=== PATIENT | female | born 1990 | race Caucasian/White ===

== ENCOUNTER 2020-05-29 12:47 | Inpatient (IN) | payer BC, OTHER ==
[~2020-05-29] VITALS: Ht 160 cm; Wt 104.9 kg
--- NOTE | 2020-05-29 13:54 | NUR ---
AGRICULTURAL EXTENSION EDUCATOR: URINE COLLECTED AND SENT TO LAB.
[2020-05-29 14:03] LABS: BASOPHILS % (AUTO) 1 % (0-1); EOSINOPHILS % (AUTO) 0 % (1-7); LYMPHOCYTES % (AUTO) 15 % (22-44); MEAN CORPUSCULAR HGB CONC 34.3 g/dL (32.4-35.8); MEAN PLATELET VOLUME 7.4 fL (7.4-10.4); MONOCYTES % (AUTO) 7 % (2-9); NEUTROPHILS % (AUTO) 77 % (42-75); PLATELET COUNT 342 x10^3/uL (130-400); RED BLOOD COUNT 4.07 x10^6/uL (3.82-5.3); RED CELL DISTRIBUTION WIDTH 13.7 % (9.6-15.2)
[2020-05-29 14:04] LABS: MICROSCOPIC INDICATED
[2020-05-29 14:09] LABS: MD NO
[2020-05-29 14:11] LABS: ANION GAP 19 mmol/L (5-15); CALCIUM 8.8 mg/dL (8.5-10.1); CHLORIDE 88 mmol/L (98-107)
[2020-05-29 14:20] LABS: ALANINE AMINOTRANSFERASE 154 U/L (12-78); ALKALINE PHOSPHATASE 180 U/L (45-117); BILIRUBIN,TOTAL 3.5 mg/dL (0.2-1.0); CREATININE 1.06 mg/dL (0.55-1.02); TOTAL PROTEIN 7.5 g/dL (6.4-8.2)
--- NOTE | 2020-05-29 15:40 | NUR ---
THIS IS A 29 YO F W/ C/O RUQ/LUQ, R FLANK AND L FLANK PAIN W/ N/V. PT REPORTS DRINKING 1/5 ALCOHOL DAY, LAST DRINK WAS TODAY. PT RESTING ON GURNEY W/ CALL LIGHT IN REACH, RESP EVEN AND UNLABORED. PT TACHYCARDIC, OTHER VS WDL. AWAITING ED EVAL.
[2020-05-29] MEDS ORDERED: POTASSIUM CHLORIDE 40 MEQ in SODIUM CHLORIDE 0.9% 500 ML IV ONE (16:00)
[2020-05-29] MEDS ORDERED: FAMOTIDINE 20 MG/2 ML IV ONE (16:00)
[2020-05-29] MEDS ORDERED: ONDANSETRON 2MG/ML, 2ML IVPush ONE (16:00)
[2020-05-29] MEDS ORDERED: SODIUM CHLORIDE 0.9% 1,000ML IVBOLUS ONE (16:00)
--- NOTE | 2020-05-29 16:23 | NUR ---
NEED IV FOR CT EXAM
[2020-05-29] MEDS ORDERED: ONDANSETRON 2MG/ML, 2ML ONE (16:33)
[2020-05-29] MEDS ORDERED: MORPHINE SULFATE 4 MG/ML, 1ML ONE ×2 (16:34→17:35)
[2020-05-29] MEDS ORDERED: FAMOTIDINE 20 MG/2 ML ONE (16:34)
[2020-05-29] MEDS: MORPHINE SULFATE 4 MG/ML, 1ML IVPush PRN ×2 (16:36→17:40)
--- NOTE | 2020-05-29 16:43 | NUR ---
TASK RN: PIV STARTED AND PT MEDICATED PER EMAR. PT TAKEN TO CT AT THIS TIME.
--- NOTE | 2020-05-29 16:47 | NUR ---
TASK RN: HERBERTH VERONICA FROM PHARMACY.
[2020-05-29] MEDS ORDERED: OMNIPAQUE 350 MG/ML, 100ML BOTTLE ONE (16:59)
--- NOTE | 2020-05-29 17:03 | NUR ---
PT RETURNS FROM CT. STATES SHE'S FEELING A LITTLE BETTER AFTER MORPHINE & ZOFRAN. IV BOLUS INFUSING. MIVF + KCL REQUESTED FROM PHARMACY.
[2020-05-29] MEDS ORDERED: BUSPIRONE PO (17:05)
[2020-05-29] MEDS ORDERED: VENLAFAXINE PO (17:05)
--- NOTE | 2020-05-29 17:48 | NUR ---
RV'WD POC WITH PT. PT STILL C/O LOW BACK PAIN 12/25. MEDICATED WITH ANOTHER DOSE OF MORPHINE. HR 120s-130s, WILL REASSESS AFTER PAIN MEDICATION.
[2020-05-29 18:20] LABS: ACETONE, SERUM Negative (Negative)
[2020-05-29] MEDS ORDERED: SODIUM CHLORIDE 0.9% 1,000 ML IV ONE (18:30)
[2020-05-29] MEDS ORDERED: DOCUSATE 100 MG CAPSULE PO PRN (19:00)
[2020-05-29] MEDS ORDERED: CEFTRIAXONE PMX 1GM/50ML 50 ML IV ONE (19:00)
[2020-05-29] MEDS ORDERED: LABETALOL 5MG/ML, 20ML IVPush PRN (19:00)
[2020-05-29] MEDS: SODIUM CHLORIDE 0.9% 1,000 ML IV SCH (19:00)
[2020-05-29] MEDS ORDERED: CEFTRIAXONE PMX 1GM/50ML 50 ML ONE (19:46)
[2020-05-29 20:42] VITALS: BP 110/74
[2020-05-29] MEDS: VENLAFAXINE 25MG TABLET PO SCH (21:00)
[2020-05-29] MEDS ORDERED: VENLAFAXINE 50MG TABLET ONE (21:58)
[2020-05-29] MEDS: HEPARIN 5,000 UNITS/ML, 1ML SQ SCH (22:05)
[2020-05-29] MEDS: BUSPIRONE 5 MG TABLET PO SCH (22:05)
[2020-05-29] MEDS: NICOTINE 7 MG/24 HR PATCH.TD24 TD SCH (22:05)
[2020-05-29] MEDS: ONDANSETRON 2MG/ML, 2ML IVPush PRN (22:05)
[2020-05-29] MEDS: INSULIN LISPRO 100 UNITS/ML, PEN SQ-INSULIN SCH (22:35)
[2020-05-29] MEDS: POTASSIUM CHLORIDE 20 MEQ, MAGNESIUM SULFATE 1 GM, THIAMINE 200 MG, FOLIC ACID 1 MG, MV... IV SCH (22:35)
[2020-05-30 01:20] VITALS: BP_SYST 104; BP_SYST 124; BP_DIAS 65; BP_DIAS 68
[2020-05-30] MEDS: SODIUM CHLORIDE 0.9% 1,000 ML IV SCH ×3 (04:14→20:06)
[2020-05-30] MEDS ORDERED: DIPHENHYDRAMINE 25 MG CAPSULE ONE (04:21)
[2020-05-30] MEDS: DIPHENHYDRAMINE 25 MG CAPSULE PO PRN (04:22)
[2020-05-30 04:55] LABS: BASOPHILS % (AUTO) 0 % (0-1); EOSINOPHILS % (AUTO) 1 % (1-7); LYMPHOCYTES % (AUTO) 18 % (22-44); MEAN CORPUSCULAR HGB CONC 33.9 g/dL (32.4-35.8); MEAN PLATELET VOLUME 7.3 fL (7.4-10.4); MONOCYTES % (AUTO) 5 % (2-9); NEUTROPHILS % (AUTO) 76 % (42-75); PLATELET COUNT 308 x10^3/uL (130-400); RED BLOOD COUNT 3.51 x10^6/uL (3.82-5.3); RED CELL DISTRIBUTION WIDTH 13.7 % (9.6-15.2)
[2020-05-30 05:05] LABS: ALBUMIN 2.6 g/dL (3.4-5.0); ANION GAP 11 mmol/L (5-15); CALCIUM 7.9 mg/dL (8.5-10.1); CHLORIDE 102 mmol/L (98-107)
[2020-05-30 05:10] LABS: ALANINE AMINOTRANSFERASE 115 U/L (12-78); ALKALINE PHOSPHATASE 139 U/L (45-117); BILIRUBIN,TOTAL 3.4 mg/dL (0.2-1.0); CREATININE 0.91 mg/dL (0.55-1.02); TOTAL PROTEIN 6.3 g/dL (6.4-8.2)
[2020-05-30 05:11] LABS: MD NO
[2020-05-30] MEDS: HEPARIN 5,000 UNITS/ML, 1ML SQ SCH ×3 (05:11→21:57)
[2020-05-30 05:24] LABS: CHLORIDE,URINE RANDOM 25 mmol/L; POTASSIUM,URINE RANDOM 24 mmol/L
[2020-05-30 05:30] LABS: SODIUM,URINE RANDOM < 5 mmol/L
[2020-05-30 06:32] LABS: OSMOLALITY,URINE 616 mOsm/kg (500-850)
[2020-05-30 06:55] VITALS: BP 109/74
[2020-05-30] MEDS: ONDANSETRON 2MG/ML, 2ML IVPush PRN (08:16)
[2020-05-30] MEDS ORDERED: POTASSIUM CHLORIDE 20 MEQ TAB.ER.PRT PO ONE ×2 (08:30→19:30)
[2020-05-30] MEDS: PANTOPRAZOLE 40 MG IV IVPush SCH (08:59)
[2020-05-30] MEDS: INSULIN LISPRO 100 UNITS/ML, PEN SQ-INSULIN SCH ×4 (09:00→20:26)
[2020-05-30] MEDS: BUSPIRONE 5 MG TABLET PO SCH ×3 (09:00→21:56)
[2020-05-30] MEDS: VENLAFAXINE 25MG TABLET PO SCH ×3 (09:00→21:56)
[2020-05-30] MEDS ORDERED: MAGNESIUM SULFATE PMX 2GM/50ML 50 ML IV ONE (09:30)
[2020-05-30] MEDS ORDERED: LORazepam 1MG TABLET PO PRN ×4 (09:30)
[2020-05-30] MEDS ORDERED: LORazepam 2 MG/ML, 1ML IV PRN ×4 (09:30)
[2020-05-30] MEDS ORDERED: morphine SULFATE 10 MG/ML, 1ML IVPush PRN (09:30)
[2020-05-30] MEDS: KETOROLAC 30 MG/1 ML IVPush SCH ×3 (10:26→21:57)
[2020-05-30 11:11] LABS: FREE T4 (FREE THYROXINE) 1.04 ng/dL (0.76-1.46)
[2020-05-30 12:11] VITALS: BP 94/62
[2020-05-30 16:23] LABS: AMPHETAMINE SCREEN, URINE Negative (Negative); BARBITURATE SCREEN, URINE Negative (Negative); BENZODIAZEPINE SCREEN, URINE Negative (Negative); CANNABINOID SCREEN, URINE Negative (Negative); COCAINE SCREEN, URINE Negative (Negative); METHADONE SCREEN, URINE Negative (Negative); OPIATE SCREEN, URINE Positive (Negative)
[2020-05-30 19:30] VITALS: BP 97/65
[2020-05-30] MEDS: CEFTRIAXONE PMX 1GM/50ML 50 ML IV SCH (20:01)
[2020-05-30] MEDS: POTASSIUM CHLORIDE 20 MEQ, MAGNESIUM SULFATE 1 GM, THIAMINE 200 MG, FOLIC ACID 1 MG, MV... IV SCH (21:56)
[2020-05-30] MEDS: CHLORDIAZEPOXIDE 25 MG CAPSULE PO SCH (21:56)
[2020-05-30] MEDS: NICOTINE 7 MG/24 HR PATCH.TD24 TD SCH (21:58)
[2020-05-31 02:38] VITALS: BP 104/60
[2020-05-31] MEDS: KETOROLAC 30 MG/1 ML IVPush SCH ×4 (03:48→21:52)
[2020-05-31 04:56] LABS: BASOPHILS % (AUTO) 1 % (0-1); EOSINOPHILS % (AUTO) 4 % (1-7); LYMPHOCYTES % (AUTO) 31 % (22-44); MEAN CORPUSCULAR HGB CONC 33.3 g/dL (32.4-35.8); MEAN PLATELET VOLUME 7.3 fL (7.4-10.4); MONOCYTES % (AUTO) 7 % (2-9); NEUTROPHILS % (AUTO) 57 % (42-75); PLATELET COUNT 269 x10^3/uL (130-400); RED BLOOD COUNT 3.22 x10^6/uL (3.82-5.3); RED CELL DISTRIBUTION WIDTH 13.7 % (9.6-15.2)
[2020-05-31 05:01] LABS: ALANINE AMINOTRANSFERASE 100 U/L (12-78); ANION GAP 8 mmol/L (5-15); CALCIUM 7.3 mg/dL (8.5-10.1); CHLORIDE 110 mmol/L (98-107); CREATININE 0.63 mg/dL (0.55-1.02)
[2020-05-31 05:03] LABS: ALKALINE PHOSPHATASE 114 U/L (45-117); BILIRUBIN,TOTAL 3.2 mg/dL (0.2-1.0); TOTAL PROTEIN 5.1 g/dL (6.4-8.2)
[2020-05-31 05:04] LABS: MD NO
[2020-05-31] MEDS: HEPARIN 5,000 UNITS/ML, 1ML SQ SCH ×3 (05:18→23:16)
[2020-05-31] MEDS: CHLORDIAZEPOXIDE 25 MG CAPSULE PO SCH ×4 (05:18→20:15)
[2020-05-31] MEDS: SODIUM CHLORIDE 0.9% 1,000 ML IV SCH (05:18)
[2020-05-31] MEDS: INSULIN LISPRO 100 UNITS/ML, PEN SQ-INSULIN SCH ×4 (07:00→20:13)
[2020-05-31 07:22] VITALS: BP 136/88
[2020-05-31] MEDS: PANTOPRAZOLE 40 MG IV IVPush SCH (08:13)
[2020-05-31] MEDS: BUSPIRONE 5 MG TABLET PO SCH ×3 (08:14→20:15)
[2020-05-31] MEDS: VENLAFAXINE 25MG TABLET PO SCH ×3 (08:14→20:15)
[2020-05-31] MEDS: LACTOBACILLUS CHEW TABLET PO SCH ×3 (11:00→20:15)
[2020-05-31] MEDS ORDERED: POTASSIUM CHLORIDE 20 MEQ, MAGNESIUM SULFATE 1 GM, THIAMINE 200 MG, FOLIC ACID 1 MG, MV... IV SCH (11:30)
[2020-05-31] MEDS ORDERED: POTASSIUM PHOSPHATE 44 MEQ in SODIUM CHLORIDE 0.9% 500 ML IV ONE (11:30)
[2020-05-31 12:24] VITALS: BP 114/78
[2020-05-31] MEDS: LORazepam 2 MG/ML, 1ML IV PRN (15:17)
[2020-05-31 19:16] VITALS: BP 106/75
[2020-05-31] MEDS: CEFTRIAXONE PMX 1GM/50ML 50 ML IV SCH (20:22)
[2020-05-31] MEDS: NICOTINE 7 MG/24 HR PATCH.TD24 TD SCH (20:22)
[2020-05-31] MEDS: POTASSIUM CHLORIDE 20 MEQ, MAGNESIUM SULFATE 1 GM, THIAMINE 200 MG, FOLIC ACID 1 MG, MV... IV SCH (21:52)
[2020-05-31 22:03] LABS: CLOSTRIDIUM DIFFICILE ANTIGEN NEGATIVE; CLOSTRIDIUM DIFFICILE TOXIN NEGATIVE (Negative)
[2020-06-01 02:22] VITALS: BP 110/75
[2020-06-01] MEDS: LORazepam 2 MG/ML, 1ML IV PRN (02:45)
[2020-06-01 04:49] LABS: ALANINE AMINOTRANSFERASE 98 U/L (12-78); ANION GAP 11 mmol/L (5-15); CALCIUM 7.3 mg/dL (8.5-10.1); CHLORIDE 110 mmol/L (98-107)
[2020-06-01 04:51] LABS: ALKALINE PHOSPHATASE 121 U/L (45-117); BILIRUBIN,TOTAL 3.7 mg/dL (0.2-1.0); TOTAL PROTEIN 5.2 g/dL (6.4-8.2)
[2020-06-01] MEDS: CHLORDIAZEPOXIDE 25 MG CAPSULE PO SCH ×3 (06:21→16:35)
[2020-06-01] MEDS: LACTOBACILLUS CHEW TABLET PO SCH ×4 (06:21→20:37)
[2020-06-01] MEDS: KETOROLAC 30 MG/1 ML IVPush SCH ×4 (06:21→23:46)
[2020-06-01] MEDS: HEPARIN 5,000 UNITS/ML, 1ML SQ SCH ×3 (06:22→23:47)
[2020-06-01] MEDS: INSULIN LISPRO 100 UNITS/ML, PEN SQ-INSULIN SCH ×4 (07:00→21:00)
[2020-06-01 07:35] VITALS: BP 106/72
[2020-06-01] MEDS: BUSPIRONE 5 MG TABLET PO SCH ×3 (09:20→20:37)
[2020-06-01] MEDS: VENLAFAXINE 25MG TABLET PO SCH ×3 (09:20→20:37)
[2020-06-01] MEDS: PANTOPRAZOLE 40 MG IV IVPush SCH (09:21)
[2020-06-01] MEDS: NICOTINE 7 MG/24 HR PATCH.TD24 TD SCH (09:22)
[2020-06-01 11:52] VITALS: BP 104/73
[2020-06-01 14:32] VITALS: BP 104/73
[2020-06-01] MEDS: LORazepam 0.5MG TABLET PO PRN ×2 (14:48→21:36)
[2020-06-01 19:22] VITALS: BP 101/71
[2020-06-01] MEDS: CEFTRIAXONE PMX 1GM/50ML 50 ML IV SCH (20:36)
[2020-06-01] MEDS: POTASSIUM CHLORIDE 20 MEQ, MAGNESIUM SULFATE 1 GM, THIAMINE 200 MG, FOLIC ACID 1 MG, MV... IV SCH (21:36)
[2020-06-02 01:39] VITALS: BP 98/67
[2020-06-02 05:16] LABS: BASOPHILS % (AUTO) 1 % (0-1); EOSINOPHILS % (AUTO) 2 % (1-7); LYMPHOCYTES % (AUTO) 26 % (22-44); MEAN CORPUSCULAR HEMOGLOBIN 34.6 pg (27.0-34.8); MEAN CORPUSCULAR HGB CONC 33.4 g/dL (32.4-35.8); MEAN PLATELET VOLUME 6.9 fL (7.4-10.4); MONOCYTES % (AUTO) 7 % (2-9); NEUTROPHILS % (AUTO) 64 % (42-75); PLATELET COUNT 338 x10^3/uL (130-400); RED BLOOD COUNT 3.22 x10^6/uL (3.82-5.3); RED CELL DISTRIBUTION WIDTH 14.3 % (9.6-15.2)
[2020-06-02 05:28] LABS: MD NO
[2020-06-02 05:34] LABS: ALANINE AMINOTRANSFERASE 93 U/L (12-78); ALBUMIN 2.1 g/dL (3.4-5.0); ANION GAP 10 mmol/L (5-15); CALCIUM 7.6 mg/dL (8.5-10.1); CHLORIDE 110 mmol/L (98-107); CREATININE 0.52 mg/dL (0.55-1.02)
[2020-06-02 05:37] LABS: ALKALINE PHOSPHATASE 134 U/L (45-117); BILIRUBIN,TOTAL 3.7 mg/dL (0.2-1.0); TOTAL PROTEIN 5.4 g/dL (6.4-8.2)
[2020-06-02] MEDS ORDERED: PANTOPRAZOLE 40MG TABLET PO SCH (06:00)
[2020-06-02] MEDS: LACTOBACILLUS CHEW TABLET PO SCH ×4 (06:16→20:32)
[2020-06-02] MEDS: PANTOPRAZOLE 40MG TABLET PO SCH (06:16)
[2020-06-02] MEDS: KETOROLAC 30 MG/1 ML IVPush SCH ×4 (06:16→23:30)
[2020-06-02 06:45] VITALS: BP 102/65
[2020-06-02] MEDS: INSULIN LISPRO 100 UNITS/ML, PEN SQ-INSULIN SCH ×4 (07:00→20:58)
[2020-06-02] MEDS: NICOTINE 7 MG/24 HR PATCH.TD24 TD SCH (07:58)
[2020-06-02] MEDS: BUSPIRONE 5 MG TABLET PO SCH ×3 (07:59→20:32)
[2020-06-02] MEDS: VENLAFAXINE 25MG TABLET PO SCH ×3 (07:59→20:32)
[2020-06-02] MEDS: HEPARIN 5,000 UNITS/ML, 1ML SQ SCH ×3 (07:59→23:00)
[2020-06-02 12:10] VITALS: BP 102/69
[2020-06-02] MEDS ORDERED: LOPERAMIDE 2 MG CAPSULE PO PRN (17:30)
[2020-06-02] MEDS: LORazepam 0.5MG TABLET PO PRN (17:36)
[2020-06-02] MEDS: CEFTRIAXONE PMX 1GM/50ML 50 ML IV SCH (20:33)
[2020-06-02] MEDS: DIPHENHYDRAMINE 25 MG CAPSULE PO PRN (20:51)
[2020-06-02 20:57] VITALS: BP 110/75
[2020-06-02] MEDS: POTASSIUM CHLORIDE 20 MEQ, MAGNESIUM SULFATE 1 GM, THIAMINE 200 MG, FOLIC ACID 1 MG, MV... IV SCH (21:00)
[2020-06-03 02:00] VITALS: BP 116/79
[2020-06-03 05:42] LABS: BASOPHILS % (AUTO) 1 % (0-1); EOSINOPHILS % (AUTO) 2 % (1-7); LYMPHOCYTES % (AUTO) 21 % (22-44); MEAN CORPUSCULAR HEMOGLOBIN 34.3 pg (27.0-34.8); MEAN CORPUSCULAR HGB CONC 32.9 g/dL (32.4-35.8); MEAN PLATELET VOLUME 7.2 fL (7.4-10.4); MONOCYTES % (AUTO) 9 % (2-9); NEUTROPHILS % (AUTO) 67 % (42-75); PLATELET COUNT 318 x10^3/uL (130-400); RED BLOOD COUNT 3.21 x10^6/uL (3.82-5.3); RED CELL DISTRIBUTION WIDTH 14.8 % (9.6-15.2)
[2020-06-03 05:52] LABS: ALBUMIN 2.1 g/dL (3.4-5.0); ANION GAP 9 mmol/L (5-15); CHLORIDE 108 mmol/L (98-107)
[2020-06-03 05:56] LABS: ALANINE AMINOTRANSFERASE 80 U/L (12-78); ALKALINE PHOSPHATASE 144 U/L (45-117); BILIRUBIN,TOTAL 4.5 mg/dL (0.2-1.0); CREATININE 0.54 mg/dL (0.55-1.02); TOTAL PROTEIN 5.4 g/dL (6.4-8.2)
[2020-06-03 06:03] LABS: MD NO
[2020-06-03] MEDS: KETOROLAC 30 MG/1 ML IVPush SCH ×2 (06:05→12:23)
[2020-06-03] MEDS: LACTOBACILLUS CHEW TABLET PO SCH ×2 (06:05→12:23)
[2020-06-03] MEDS: PANTOPRAZOLE 40MG TABLET PO SCH (06:06)
[2020-06-03] MEDS: INSULIN LISPRO 100 UNITS/ML, PEN SQ-INSULIN SCH ×2 (07:07→11:18)
[2020-06-03 08:21] VITALS: BP 103/71
[2020-06-03] MEDS: BUSPIRONE 5 MG TABLET PO SCH (08:35)
[2020-06-03] MEDS: VENLAFAXINE 25MG TABLET PO SCH (08:35)
[2020-06-03] MEDS: HEPARIN 5,000 UNITS/ML, 1ML SQ SCH (08:36)
[2020-06-03] MEDS: NICOTINE 7 MG/24 HR PATCH.TD24 TD SCH (08:39)
[2020-06-03 10:58] LABS: CHOLESTEROL, TOTAL 194 mg/dL (140-239); TRIGLYCERIDES 592 mg/dL (50-200)
[2020-06-03 11:00] LABS: CHOL/HDL RATIO 24.3; HDL CHOL % 4 % (28-40); HDL CHOLESTEROL (DIRECT) 8 mg/dL (40-60)
[2020-06-03] MEDS ORDERED: ATORVASTATIN 80 MG TABLET PO SCH (14:30)
[2020-06-03 15:15] VITALS: BP 109/75
== END 2020-06-03 16:50 | disposition home or self-care (01) | DRG 441 ==
LOC: ED 17:03 → EDIP 18:48 → 4WST 20:37 → DCLOUNGE 06-03 16:30
PROVIDERS: ADMIT Family Medicine; ATTEND Family Medicine
DX: B17.9 Acute viral hepatitis, unspecified (principal); K85.20 Alcohol induced acute pancreatitis without necrosis or infection; N17.0 Acute kidney failure with tubular necrosis; J98.11 Atelectasis; N39.0 Urinary tract infection, site not specified; E87.1 Hypo-osmolality and hyponatremia; F10.239 Alcohol dependence with withdrawal, unspecified; Z68.41 Body mass index [BMI] 40.0-44.9, adult; K71.9 Toxic liver disease, unspecified; F32.9 Major depressive disorder, single episode, unspecified; F41.9 Anxiety disorder, unspecified; E86.0 Dehydration; E66.9 Obesity, unspecified; K76.0 Fatty (change of) liver, not elsewhere classified; N83.201 Unspecified ovarian cyst, right side; Y90.9 Presence of alcohol in blood, level not specified; E87.6 Hypokalemia; F17.210 Nicotine dependence, cigarettes, uncomplicated; E11.65 Type 2 diabetes mellitus with hyperglycemia; B96.20 Unspecified Escherichia coli [E. coli] as the cause of diseases classified elsewhere; E78.1 Pure hyperglyceridemia; E78.5 Hyperlipidemia, unspecified; Z71.6 Tobacco abuse counseling; Z79.899 Other long term (current) drug therapy; Z91.018 Allergy to other foods
CPT/HCPCS: 36415; 74177; 76700; 80053; 80061; 80074; 80307; 81001; 82010; 82436; 82607; 82800; 82962; 83036; 83605; 83690; 83735; 83930; 83935; 84100; 84132; 84133; 84145; 84300; 84439; 84443; 84703; 85025; 87040; 87077; 87086; 87186; 87324; 96361; 96374; 96375; 96376; G0378; J0696; J1644; J1885; J2405; J3411; J3475; J3480; Q9967; C9113; J1815; J2060; J2270; J7030; J7040; Q0163

== ENCOUNTER 2020-06-08 18:05 | Inpatient (IN) | payer BC ==
[~2020-06-08] VITALS: Ht 160 cm; Wt 91.9 kg
[~2020-06-08 18:05] MED LIST: BUSPIRONE PO; VENLAFAXINE PO
--- NOTE | 2020-06-08 18:30 | NUR ---
PATIENT TO ROOM FROM LOBBY
[2020-06-08] MEDS ORDERED: SODIUM CHLORIDE 0.9% 1,000ML IVBOLUS ONE (19:00)
[2020-06-08] MEDS ORDERED: SODIUM CHLORIDE 0.9% 1,000 ML IV ONE (19:00)
[2020-06-08] MEDS ORDERED: SODIUM CHLORIDE FLUSH 10ML SYR IVF ONE (19:00)
[2020-06-08] MEDS ORDERED: ONDANSETRON 2MG/ML, 2ML IVPush ONE (19:00)
--- NOTE | 2020-06-08 19:06 | NUR ---
report of pt from francie cardona and assuming care of pt at this time.
[2020-06-08 19:11] LABS: BASOPHILS % (AUTO) 0 % (0-1); EOSINOPHILS % (AUTO) 2 % (1-7); LYMPHOCYTES % (AUTO) 15 % (22-44); MEAN CORPUSCULAR HEMOGLOBIN 34.9 pg (27.0-34.8); MEAN CORPUSCULAR HGB CONC 33.6 g/dL (32.4-35.8); MEAN PLATELET VOLUME 7.6 fL (7.4-10.4); MONOCYTES % (AUTO) 7 % (2-9); NEUTROPHILS % (AUTO) 76 % (42-75); PLATELET COUNT 536 x10^3/uL (130-400); RED BLOOD COUNT 3.57 x10^6/uL (3.82-5.3)
[2020-06-08 19:16] LABS: MD NO
[2020-06-08 19:23] LABS: ALBUMIN 2.7 g/dL (3.4-5.0); ANION GAP 12 mmol/L (5-15); CALCIUM 9.8 mg/dL (8.5-10.1); CHLORIDE 103 mmol/L (98-107)
[2020-06-08 19:28] LABS: ALANINE AMINOTRANSFERASE 53 U/L (12-78); ALKALINE PHOSPHATASE 210 U/L (45-117); CREATININE 0.82 mg/dL (0.55-1.02); TOTAL PROTEIN 7.2 g/dL (6.4-8.2)
[2020-06-08] MEDS ORDERED: HYDROmorphone 1 MG/ML, 1ML INJ ONE ×2 (19:29→21:28)
[2020-06-08] MEDS ORDERED: ONDANSETRON 2MG/ML, 2ML ONE (19:29)
[2020-06-08] MEDS: HYDROmorphone 2 MG/ML, 1ML IVPush PRN ×2 (19:33→22:00)
--- NOTE | 2020-06-08 19:50 | NUR ---
PT TO IMAGING VIA [facility] AT THIS TIME. MEDICATIONS INFUSING PER MAR.
--- NOTE | 2020-06-08 19:57 | NUR ---
PT BACK FROM [place] VIA [facility] AT THIS TIME. PT RESTING COMFORTABLY IN [facility] WITH XIANG.
[2020-06-08 20:56] LABS: MICROSCOPIC INDICATED
[2020-06-08] MEDS ORDERED: OMNIPAQUE 350 MG/ML, 100ML BOTTLE ONE (21:25)
--- NOTE | 2020-06-08 21:59 | NUR ---
pt back from ct. pt medicated per mar for pain. pt has call light within reach and vss at this time.
[2020-06-08] MEDS ORDERED: CEFTRIAXONE PMX 1GM/50ML 50 ML IVPB ONE (23:00)
[2020-06-08] MEDS ORDERED: AZITHROMYCIN 500 MG in SODIUM CHLORIDE 0.9% 250 ML IVPB ONE (23:00)
[2020-06-08] MEDS ORDERED: CEFTRIAXONE PMX 1GM/50ML 50 ML ONE (23:29)
[2020-06-08] MEDS ORDERED: SODIUM CHLORIDE FLUSH 10ML SYR IVF PRN (23:30)
--- NOTE | 2020-06-08 23:38 | NUR ---
COVID SWAB PERFORMED AND WALKED TO LAB BY THIS RN AT THIS TIME.
--- NOTE | 2020-06-08 23:54 | NUR ---
PER LAB, THIS RN LABELED THE SPECIMEN AND NOT THE TUBE, SO LAB REQUIRED A RESWAB OF PT. PT EDUCATED ON NEED FOR THIS RN TO OBTAIN A SECOND SAMPLE. PT SAMPLE COLLECTED AND WALKED TO LAB FOR REPROCESSING OF SPECIMEN.
[2020-06-09] MEDS ORDERED: DOCUSATE 100 MG CAPSULE PO PRN
[2020-06-09] MEDS ORDERED: LIDODERM 5% PATCH TD PRN
--- NOTE | 2020-06-09 02:16 | NUR ---
MEDICAL BED REQUESTED AT THIS TIME.
[2020-06-09] MEDS ORDERED: OXYcodone IR 5MG TABLET ONE (03:22)
[2020-06-09] MEDS: OXYcodone IR 5MG TABLET PO PRN ×3 (03:24→23:11)
--- NOTE | 2020-06-09 03:27 | NUR ---
PT MEDICATED PER MAR FOR PAIN. PT VSS AND UPDATED IN EMR.
[2020-06-09 05:44] LABS: BASOPHILS % (AUTO) 1 % (0-1); EOSINOPHILS % (AUTO) 2 % (1-7); LYMPHOCYTES % (AUTO) 23 % (22-44); MEAN CORPUSCULAR HEMOGLOBIN 34.5 pg (27.0-34.8); MEAN CORPUSCULAR HGB CONC 32.7 g/dL (32.4-35.8); MEAN PLATELET VOLUME 7.1 fL (7.4-10.4); MONOCYTES % (AUTO) 7 % (2-9); NEUTROPHILS % (AUTO) 69 % (42-75); PLATELET COUNT 489 x10^3/uL (130-400); RED BLOOD COUNT 3.13 x10^6/uL (3.82-5.3); RED CELL DISTRIBUTION WIDTH 16.7 % (9.6-15.2)
--- NOTE | 2020-06-09 05:54 | NUR ---
PT SLEEPING IN [facility] AT THIS TIME WITH XIANG. CALL LIGHT IS WITHIN REACH OF PT.
[2020-06-09 05:55] LABS: ALBUMIN 2.2 g/dL (3.4-5.0); ANION GAP 11 mmol/L (5-15); CALCIUM 8.5 mg/dL (8.5-10.1); CHLORIDE 106 mmol/L (98-107)
[2020-06-09 06:01] LABS: ALANINE AMINOTRANSFERASE 42 U/L (12-78); ALKALINE PHOSPHATASE 177 U/L (45-117); BILIRUBIN,TOTAL 6.6 mg/dL (0.2-1.0); CREATININE 0.59 mg/dL (0.55-1.02); TOTAL PROTEIN 6.1 g/dL (6.4-8.2)
--- NOTE | 2020-06-09 06:12 | NUR ---
pt to mri via [facility] at this time.
[2020-06-09 06:41] LABS: MD SCAN
--- NOTE | 2020-06-09 06:55 | NUR ---
pt back from mri at this time.
[2020-06-09] MEDS: INSULIN LISPRO 100 UNITS/ML, PEN SQ-INSULIN SCH ×4 (07:00→21:00)
--- NOTE | 2020-06-09 07:10 | NUR ---
ASSUMED CARE OF PATIENT, REPORT FROM MILADIS SCHULTZ.
--- NOTE | 2020-06-09 07:35 | NUR ---
REPORT CALLED TO ANNE MARIE SCHULTZ
[2020-06-09] MEDS: HYDROmorphone 2 MG/ML, 1ML IVPush PRN ×4 (08:54→21:49)
[2020-06-09 08:56] VITALS: BP 106/70
[2020-06-09] MEDS ORDERED: POTASSIUM CHLORIDE 20 MEQ TAB.ER.PRT PO ONE (10:00)
[2020-06-09] MEDS: HEPARIN 5,000 UNITS/ML, 1ML SQ SCH ×2 (10:25→18:09)
[2020-06-09 11:06] LABS: C-REACTIVE PROTEIN, QUANT 4.1 mg/dL (0.02-0.49)
[2020-06-09 12:14] VITALS: BP 102/68
[2020-06-09] MEDS ORDERED: AZITHROMYCIN 500 MG in SODIUM CHLORIDE 0.9% 250 ML IV SCH (18:00)
[2020-06-09 20:15] VITALS: BP 113/80
[2020-06-09] MEDS ORDERED: CEFTRIAXONE PMX 1GM/50ML 50 ML IV SCH (23:00)
[2020-06-10] MEDS: HYDROmorphone 2 MG/ML, 1ML IVPush PRN ×6 (01:33→22:41)
[2020-06-10] MEDS: HEPARIN 5,000 UNITS/ML, 1ML SQ SCH ×3 (01:34→17:14)
[2020-06-10 03:12] VITALS: BP 119/78
[2020-06-10] MEDS: OXYcodone IR 5MG TABLET PO PRN ×2 (03:15→09:29)
[2020-06-10 05:48] LABS: ALANINE AMINOTRANSFERASE 44 U/L (12-78); ALBUMIN 2.3 g/dL (3.4-5.0); ANION GAP 13 mmol/L (5-15); CALCIUM 8.8 mg/dL (8.5-10.1); CHLORIDE 106 mmol/L (98-107)
[2020-06-10 05:50] LABS: BASOPHILS % (AUTO) 1 % (0-1); EOSINOPHILS % (AUTO) 3 % (1-7); LYMPHOCYTES % (AUTO) 26 % (22-44); MEAN CORPUSCULAR HEMOGLOBIN 35.4 pg (27.0-34.8); MEAN CORPUSCULAR HGB CONC 33.9 g/dL (32.4-35.8); MEAN PLATELET VOLUME 7.2 fL (7.4-10.4); MONOCYTES % (AUTO) 8 % (2-9); NEUTROPHILS % (AUTO) 63 % (42-75); PLATELET COUNT 495 x10^3/uL (130-400); RED BLOOD COUNT 3.01 x10^6/uL (3.82-5.3); RED CELL DISTRIBUTION WIDTH 16.7 % (9.6-15.2)
[2020-06-10 05:51] LABS: ALKALINE PHOSPHATASE 175 U/L (45-117); BILIRUBIN,TOTAL 6.2 mg/dL (0.2-1.0); CREATININE 0.59 mg/dL (0.55-1.02); TOTAL PROTEIN 6.5 g/dL (6.4-8.2)
[2020-06-10 06:22] LABS: MD NO
[2020-06-10] MEDS: INSULIN LISPRO 100 UNITS/ML, PEN SQ-INSULIN SCH ×4 (07:00→19:50)
[2020-06-10 07:59] VITALS: BP 116/78
[2020-06-10] MEDS ORDERED: FENTANYL 25 MCG PATCH TD SCH (10:00)
[2020-06-10] MEDS ORDERED: SODIUM CHLORIDE 0.9% 1,000 ML IV SCH (10:00)
[2020-06-10] MEDS ORDERED: IBUPROFEN 200 MG TABLET ONE (10:20)
[2020-06-10] MEDS ORDERED: IBUPROFEN 800 MG TABLET PO ONE (10:30)
[2020-06-10 13:39] VITALS: BP 102/68
[2020-06-10] MEDS: BACITRACIN/POLYMIXIN B SULFATE OINT 14 GM TP SCH ×2 (16:30→19:44)
[2020-06-10] MEDS: D5%-0.9% NACL 1,000 ML IV SCH (17:00)
[2020-06-10] MEDS: MELATONIN 5 MG TABLET PO PRN (19:44)
[2020-06-10 20:40] VITALS: BP 105/72
[2020-06-11] MEDS: OXYcodone IR 5MG TABLET PO PRN ×5 (00:16→22:11)
[2020-06-11 02:50] VITALS: BP 114/78
[2020-06-11] MEDS: HEPARIN 5,000 UNITS/ML, 1ML SQ SCH ×3 (03:00→15:54)
[2020-06-11] MEDS: D5%-0.9% NACL 1,000 ML IV SCH ×3 (03:01→23:15)
[2020-06-11] MEDS: HYDROmorphone 2 MG/ML, 1ML IVPush PRN ×4 (03:01→18:41)
[2020-06-11 06:25] LABS: ALBUMIN 2.1 g/dL (3.4-5.0); ANION GAP 14 mmol/L (5-15); CALCIUM 8.9 mg/dL (8.5-10.1); CHLORIDE 109 mmol/L (98-107)
[2020-06-11 06:28] LABS: ALANINE AMINOTRANSFERASE 45 U/L (12-78); ALKALINE PHOSPHATASE 159 U/L (45-117); BILIRUBIN,TOTAL 4.6 mg/dL (0.2-1.0); CREATININE 0.54 mg/dL (0.55-1.02); TOTAL PROTEIN 6.2 g/dL (6.4-8.2)
[2020-06-11] MEDS: INSULIN LISPRO 100 UNITS/ML, PEN SQ-INSULIN SCH ×4 (07:00→21:00)
[2020-06-11 07:15] VITALS: BP 119/82
[2020-06-11] MEDS: BACITRACIN/POLYMIXIN B SULFATE OINT 14 GM TP SCH ×3 (09:00→22:20)
[2020-06-11] MEDS ORDERED: INDOCYANINE GREEN 25 MG VIAL ONE (09:44)
[2020-06-11 10:02] LABS: INTERNATIONAL NORMALIZED RATIO 1.01 (0.93-1.1); PROTHROMBIN TIME 10.7 Seconds (9.6-11.5)
[2020-06-11] MEDS ORDERED: INDOCYANINE GREEN 25 MG VIAL IVPush STA (10:06)
[2020-06-11] MEDS ORDERED: CHLORHEXIDINE 15 ML UDC MM ONE (11:30)
[2020-06-11] MEDS ORDERED: MIDAZOLAM 1 MG/ML, 2ML ONE (11:49)
[2020-06-11] MEDS ORDERED: FENTANYL PF 250 MCG/5ML ONE (11:49)
[2020-06-11] MEDS ORDERED: LIDOCAINE-MPF 2% ,5ML ONE (12:15)
[2020-06-11] MEDS ORDERED: CEFOTETAN 2 GM ONE (12:15)
[2020-06-11] MEDS ORDERED: KETOROLAC 30 MG/1 ML ONE (12:15)
[2020-06-11] MEDS ORDERED: BUPIVACAINE/PF-EPI 0.5% 1:200K INFIL ONE (12:32)
[2020-06-11] MEDS ORDERED: HYDROmorphone 1 MG/ML, 1ML INJ IVPush PRN (13:00)
[2020-06-11] MEDS ORDERED: LABETALOL 5MG/ML, 20ML IV PRN (13:00)
[2020-06-11] MEDS ORDERED: ALBUTEROL SULFATE 2.5 MG/3 ML NPPB PRN (13:00)
[2020-06-11] MEDS ORDERED: MEPERIDINE/PF 25MG/0.5ML IVPush PRN (13:00)
[2020-06-11] MEDS ORDERED: OXYcodone 5 MG/5 ML ORAL.SOL UDC PO PRN (13:00)
[2020-06-11] MEDS ORDERED: FENTANYL PF 100 MCG/2ML IV PRN (13:00)
[2020-06-11] MEDS ORDERED: hydrALAzine 20 MG/ML, 1ML IV PRN (13:00)
[2020-06-11] MEDS ORDERED: METHOCARBAMOL 1,000 MG in DEXTROSE 5% 100 ML IV PRN (13:00)
[2020-06-11] MEDS ORDERED: PROMETHAZINE 25 MG/ML, 1ML IVPush PRN (13:00)
[2020-06-11] MEDS ORDERED: LORazepam 2 MG/ML, 1ML IVPush PRN (13:00)
[2020-06-11] MEDS ORDERED: CEFAZOLIN 1,000 MG ONE (13:13)
[2020-06-11] MEDS ORDERED: ROCURONIUM 10MG/ML,5ML ONE (13:13)
[2020-06-11] MEDS ORDERED: SUCCINYLCHOLINE 20 MG/ML, 10ML ONE (13:13)
[2020-06-11] MEDS ORDERED: GLYCOPYRROLATE 0.2MG/1ML, 5ML ONE (13:13)
[2020-06-11] MEDS ORDERED: DEXAMETHASONE 4 MG/ML, 1ML ONE (13:13)
[2020-06-11] MEDS ORDERED: PROPOFOL 10 MG/ML, 20ML ONE (13:13)
[2020-06-11] MEDS ORDERED: NEOSTIGMINE 1 MG/ML, 10ML ONE (13:13)
[2020-06-11] MEDS ORDERED: ONDANSETRON 2MG/ML, 2ML ONE (13:13)
[2020-06-11] MEDS ORDERED: OXYcodone 5 MG/5 ML ORAL.SOL UDC ONE (13:41)
[2020-06-11] MEDS ORDERED: HYDROmorphone 1 MG/ML, 1ML INJ ONE (14:23)
[2020-06-11 15:00] VITALS: BP 99/66
[2020-06-11 19:30] VITALS: BP 90/61
[2020-06-11] MEDS: MELATONIN 5 MG TABLET PO PRN (22:10)
[2020-06-12 00:09] VITALS: BP 106/72
[2020-06-12] MEDS: HYDROmorphone 2 MG/ML, 1ML IVPush PRN ×5 (00:26→18:05)
[2020-06-12 03:45] VITALS: BP 98/63
[2020-06-12] MEDS: HEPARIN 5,000 UNITS/ML, 1ML SQ SCH ×3 (04:18→22:20)
[2020-06-12 06:13] LABS: BASOPHILS % (AUTO) 1 % (0-1); EOSINOPHILS % (AUTO) 0 % (1-7); LYMPHOCYTES % (AUTO) 19 % (22-44); MEAN CORPUSCULAR HEMOGLOBIN 35.4 pg (27.0-34.8); MEAN CORPUSCULAR HGB CONC 34.1 g/dL (32.4-35.8); MEAN PLATELET VOLUME 7.2 fL (7.4-10.4); MONOCYTES % (AUTO) 5 % (2-9); NEUTROPHILS % (AUTO) 75 % (42-75); PLATELET COUNT 519 x10^3/uL (130-400); RED CELL DISTRIBUTION WIDTH 16.3 % (9.6-15.2)
[2020-06-12 06:17] LABS: MD NO
[2020-06-12 06:22] LABS: ALBUMIN 2.2 g/dL (3.4-5.0); ANION GAP 12 mmol/L (5-15); CALCIUM 8.9 mg/dL (8.5-10.1); CHLORIDE 109 mmol/L (98-107)
[2020-06-12 06:26] LABS: ALANINE AMINOTRANSFERASE 54 U/L (12-78); ALKALINE PHOSPHATASE 147 U/L (45-117); BILIRUBIN,TOTAL 3.6 mg/dL (0.2-1.0); CREATININE 0.61 mg/dL (0.55-1.02); TOTAL PROTEIN 6.3 g/dL (6.4-8.2)
[2020-06-12] MEDS: INSULIN LISPRO 100 UNITS/ML, PEN SQ-INSULIN SCH ×4 (07:38→21:00)
[2020-06-12 07:40] VITALS: BP 104/69
[2020-06-12] MEDS: D5%-0.9% NACL 1,000 ML IV SCH (08:22)
[2020-06-12] MEDS: OXYcodone IR 5MG TABLET PO PRN ×4 (10:06→23:42)
[2020-06-12] MEDS: BACITRACIN/POLYMIXIN B SULFATE OINT 14 GM TP SCH ×3 (10:07→22:21)
[2020-06-12 12:45] VITALS: BP 98/64
[2020-06-12 13:07] LABS: BASOPHILS % (AUTO) 1 % (0-1); EOSINOPHILS % (AUTO) 0 % (1-7); LYMPHOCYTES % (AUTO) 19 % (22-44); MEAN CORPUSCULAR HEMOGLOBIN 34.6 pg (27.0-34.8); MEAN CORPUSCULAR HGB CONC 33.2 g/dL (32.4-35.8); MEAN PLATELET VOLUME 6.9 fL (7.4-10.4); MONOCYTES % (AUTO) 7 % (2-9); NEUTROPHILS % (AUTO) 72 % (42-75); PLATELET COUNT 571 x10^3/uL (130-400); RED BLOOD COUNT 3.01 x10^6/uL (3.82-5.3); RED CELL DISTRIBUTION WIDTH 16.3 % (9.6-15.2)
[2020-06-12 13:08] LABS: MD NO
[2020-06-12] MEDS: DIPHENHYDRAMINE 25 MG CAPSULE PO PRN (14:09)
[2020-06-12 21:08] VITALS: BP 99/67
[2020-06-13] MEDS: HYDROmorphone 2 MG/ML, 1ML IVPush PRN (01:05)
[2020-06-13 01:41] VITALS: BP 98/62
[2020-06-13] MEDS: OXYcodone IR 5MG TABLET PO PRN ×3 (05:01→19:50)
[2020-06-13 06:11] LABS: BASOPHILS % (AUTO) 1 % (0-1); EOSINOPHILS % (AUTO) 2 % (1-7); LYMPHOCYTES % (AUTO) 31 % (22-44); MEAN CORPUSCULAR HEMOGLOBIN 35.3 pg (27.0-34.8); MEAN CORPUSCULAR HGB CONC 33.7 g/dL (32.4-35.8); MEAN PLATELET VOLUME 6.8 fL (7.4-10.4); MONOCYTES % (AUTO) 7 % (2-9); NEUTROPHILS % (AUTO) 59 % (42-75); PLATELET COUNT 562 x10^3/uL (130-400); RED CELL DISTRIBUTION WIDTH 16.5 % (9.6-15.2)
[2020-06-13 06:20] LABS: MD NO
[2020-06-13 06:21] LABS: ALANINE AMINOTRANSFERASE 56 U/L (12-78); ALBUMIN 2.3 g/dL (3.4-5.0); ANION GAP 10 mmol/L (5-15); CALCIUM 8.6 mg/dL (8.5-10.1); CHLORIDE 108 mmol/L (98-107); CREATININE 0.73 mg/dL (0.55-1.02)
[2020-06-13] MEDS: HEPARIN 5,000 UNITS/ML, 1ML SQ SCH ×2 (06:21→14:19)
[2020-06-13 06:23] LABS: ALKALINE PHOSPHATASE 147 U/L (45-117); BILIRUBIN,TOTAL 2.8 mg/dL (0.2-1.0); TOTAL PROTEIN 6.2 g/dL (6.4-8.2)
[2020-06-13] MEDS: INSULIN LISPRO 100 UNITS/ML, PEN SQ-INSULIN SCH ×3 (06:25→16:49)
[2020-06-13] MEDS ORDERED: POTASSIUM CHLORIDE 40 MEQ in SODIUM CHLORIDE 0.9% 500 ML IV ONE (06:30)
[2020-06-13] MEDS ORDERED: POTASSIUM CHLORIDE 20 MEQ TAB.ER.PRT PO ONE (06:30)
[2020-06-13 07:16] VITALS: BP 103/69
[2020-06-13] MEDS: BACITRACIN/POLYMIXIN B SULFATE OINT 14 GM TP SCH ×3 (08:55→21:00)
[2020-06-13] MEDS: HYDROmorphone 1 MG/ML, 1ML INJ IV PRN ×2 (09:21→16:47)
[2020-06-13] MEDS ORDERED: FENTANYL REMOVE PATCH NOTE XX SCH (10:30)
[2020-06-13 13:05] VITALS: BP 119/80
[2020-06-13 21:58] VITALS: BP_SYST 110; BP_DIAS 65; BP_DIAS 79
[2020-06-14] MEDS: HEPARIN 5,000 UNITS/ML, 1ML SQ SCH ×3 (00:08→15:21)
[2020-06-14] MEDS: HYDROmorphone 1 MG/ML, 1ML INJ IV PRN ×4 (00:11→22:41)
[2020-06-14 01:46] VITALS: BP 113/73
[2020-06-14] MEDS: OXYcodone IR 5MG TABLET PO PRN ×5 (01:56→21:25)
[2020-06-14 06:34] LABS: ALANINE AMINOTRANSFERASE 55 U/L (12-78); ALBUMIN 2.3 g/dL (3.4-5.0); ANION GAP 12 mmol/L (5-15); CALCIUM 8.4 mg/dL (8.5-10.1); CHLORIDE 107 mmol/L (98-107); CREATININE 0.62 mg/dL (0.55-1.02)
[2020-06-14 06:37] LABS: ALKALINE PHOSPHATASE 131 U/L (45-117); BILIRUBIN,TOTAL 2.7 mg/dL (0.2-1.0); TOTAL PROTEIN 6.3 g/dL (6.4-8.2)
[2020-06-14] MEDS ORDERED: POTASSIUM CHLORIDE 20 MEQ TAB.ER.PRT PO ONE (07:30)
[2020-06-14] MEDS: BACITRACIN/POLYMIXIN B SULFATE OINT 14 GM TP SCH ×3 (07:48→21:25)
[2020-06-14 09:25] VITALS: BP 115/78
[2020-06-14] MEDS: DIPHENHYDRAMINE 25 MG CAPSULE PO PRN (10:35)
[2020-06-14 14:20] VITALS: BP 113/80
[2020-06-14 19:33] VITALS: BP 112/75
[2020-06-15] MEDS: HEPARIN 5,000 UNITS/ML, 1ML SQ SCH ×3 (00:05→16:00)
[2020-06-15 01:34] VITALS: BP 98/66
[2020-06-15 02:19] VITALS: BP 117/81
[2020-06-15] MEDS: OXYcodone IR 5MG TABLET PO PRN ×5 (02:25→20:10)
[2020-06-15] MEDS: HYDROmorphone 1 MG/ML, 1ML INJ IV PRN ×3 (05:14→18:48)
[2020-06-15 06:05] LABS: CHLORIDE 101 mmol/L (98-107)
[2020-06-15 06:13] LABS: ALANINE AMINOTRANSFERASE 60 U/L (12-78); ALBUMIN 2.6 g/dL (3.4-5.0); ALKALINE PHOSPHATASE 133 U/L (45-117); ANION GAP 12 mmol/L (5-15); BILIRUBIN,TOTAL 3.3 mg/dL (0.2-1.0); CREATININE 0.61 mg/dL (0.55-1.02); TOTAL PROTEIN 6.9 g/dL (6.4-8.2)
[2020-06-15 07:57] VITALS: BP 114/79
[2020-06-15] MEDS: BACITRACIN/POLYMIXIN B SULFATE OINT 14 GM TP SCH ×3 (08:54→20:10)
[2020-06-15] MEDS ORDERED: ACETAMINOPHEN 325 MG TABLET PO PRN (10:30)
[2020-06-15 12:19] VITALS: BP 116/81
[2020-06-15] MEDS ORDERED: HYDROmorphone 2 MG/ML, 1ML ONE (12:24)
[2020-06-15 18:39] VITALS: BP 119/85
[2020-06-15] MEDS: MELATONIN 5 MG TABLET PO PRN (22:19)
[2020-06-16] MEDS: HEPARIN 5,000 UNITS/ML, 1ML SQ SCH ×4 (00:07→23:42)
[2020-06-16] MEDS: OXYcodone IR 5MG TABLET PO PRN ×6 (00:13→21:23)
[2020-06-16] MEDS: HYDROmorphone 1 MG/ML, 1ML INJ IV PRN ×4 (01:26→22:16)
[2020-06-16 01:41] VITALS: BP 110/63
[2020-06-16 06:25] LABS: % IRON SATURATION 49 % (20-55); IRON LEVEL 129 mcg/dL (50-170); TOTAL IRON BINDING CAPACITY 262 mcg/dL (250-450)
[2020-06-16 07:10] VITALS: BP 111/75
[2020-06-16] MEDS: BACITRACIN/POLYMIXIN B SULFATE OINT 14 GM TP SCH ×3 (08:35→21:24)
[2020-06-16 14:45] VITALS: BP 107/76
[2020-06-16 18:41] VITALS: BP 99/66
[2020-06-16] MEDS: MELATONIN 5 MG TABLET PO PRN (22:16)
[2020-06-17 01:28] VITALS: BP 101/69
[2020-06-17] MEDS: OXYcodone IR 5MG TABLET PO PRN ×5 (01:28→19:32)
[2020-06-17 05:43] LABS: BASOPHILS % (AUTO) 1 % (0-1); EOSINOPHILS % (AUTO) 2 % (1-7); LYMPHOCYTES % (AUTO) 23 % (22-44); MEAN CORPUSCULAR HEMOGLOBIN 34.8 pg (27.0-34.8); MEAN CORPUSCULAR HGB CONC 33.3 g/dL (32.4-35.8); MEAN PLATELET VOLUME 6.8 fL (7.4-10.4); MONOCYTES % (AUTO) 7 % (2-9); NEUTROPHILS % (AUTO) 68 % (42-75); PLATELET COUNT 566 x10^3/uL (130-400); RED BLOOD COUNT 3.21 x10^6/uL (3.82-5.3)
[2020-06-17 05:47] LABS: CHLORIDE 104 mmol/L (98-107)
[2020-06-17] MEDS: HYDROmorphone 1 MG/ML, 1ML INJ IV PRN ×2 (05:49→11:58)
[2020-06-17 05:52] LABS: ALANINE AMINOTRANSFERASE 60 U/L (12-78); ALBUMIN 2.5 g/dL (3.4-5.0); ALKALINE PHOSPHATASE 116 U/L (45-117); ANION GAP 15 mmol/L (5-15); BILIRUBIN,TOTAL 2.9 mg/dL (0.2-1.0); CALCIUM 8.5 mg/dL (8.5-10.1); CREATININE 0.57 mg/dL (0.55-1.02); TOTAL PROTEIN 6.6 g/dL (6.4-8.2)
[2020-06-17 06:08] LABS: MD SCAN
[2020-06-17] MEDS ORDERED: MAGNESIUM SULFATE PMX 4GM/100M 100 ML IVPB ONE (07:00)
[2020-06-17 07:05] VITALS: BP 105/73
[2020-06-17] MEDS: BACITRACIN/POLYMIXIN B SULFATE OINT 14 GM TP SCH ×3 (09:00→19:33)
[2020-06-17] MEDS ORDERED: LACTATED RINGERS 1,000 ML IV SCH (10:30)
[2020-06-17] MEDS: HEPARIN 5,000 UNITS/ML, 1ML SQ SCH ×3 (10:45→23:57)
[2020-06-17 13:45] VITALS: BP 114/80
[2020-06-17] MEDS ORDERED: hydrOXyzine 10MG TABLET PO PRN (15:30)
[2020-06-17] MEDS ORDERED: HYDROmorphone 1 MG/ML, 1ML INJ IV PRN (15:30)
[2020-06-17] MEDS: HYDROmorphone 2MG TABLET PO PRN ×2 (16:53→23:31)
[2020-06-17 20:05] VITALS: BP 104/67
[2020-06-18 01:54] VITALS: BP 103/67
[2020-06-18] MEDS: OXYcodone IR 5MG TABLET PO PRN ×2 (04:50→09:50)
[2020-06-18 06:17] LABS: BASOPHILS % (AUTO) 1 % (0-1); EOSINOPHILS % (AUTO) 3 % (1-7); LYMPHOCYTES % (AUTO) 21 % (22-44); MEAN CORPUSCULAR HEMOGLOBIN 34.3 pg (27.0-34.8); MEAN CORPUSCULAR HGB CONC 33.1 g/dL (32.4-35.8); MONOCYTES % (AUTO) 7 % (2-9); NEUTROPHILS % (AUTO) 68 % (42-75); PLATELET COUNT 527 x10^3/uL (130-400); RED BLOOD COUNT 3.06 x10^6/uL (3.82-5.3); RED CELL DISTRIBUTION WIDTH 15.8 % (9.6-15.2)
[2020-06-18 06:23] VITALS: BP 108/73
[2020-06-18 06:23] LABS: MD NO
[2020-06-18 06:24] LABS: CHLORIDE 106 mmol/L (98-107)
[2020-06-18] MEDS: HYDROmorphone 2MG TABLET PO PRN (06:29)
[2020-06-18 06:46] LABS: ALANINE AMINOTRANSFERASE 59 U/L (12-78); ALBUMIN 2.4 g/dL (3.4-5.0); ALKALINE PHOSPHATASE 108 U/L (45-117); ANION GAP 13 mmol/L (5-15); BILIRUBIN,TOTAL 2.6 mg/dL (0.2-1.0); CALCIUM 8.1 mg/dL (8.5-10.1); CREATININE 0.55 mg/dL (0.55-1.02); TOTAL PROTEIN 6.3 g/dL (6.4-8.2)
[2020-06-18] MEDS: HEPARIN 5,000 UNITS/ML, 1ML SQ SCH (08:21)
[2020-06-18] MEDS: BACITRACIN/POLYMIXIN B SULFATE OINT 14 GM TP SCH (09:00)
[2020-06-18] MEDS ORDERED: POTASSIUM CHLORIDE 20 MEQ TAB.ER.PRT PO ONE (09:00)
[2020-06-18] MEDS ORDERED: LACTATED RINGERS 1,000 ML IV SCH (10:30)
[2020-06-18] MEDS ORDERED: HYDR2TAB29 PO (10:43)
== END 2020-06-18 10:51 | disposition home or self-care (01) | DRG 417 ==
LOC: ED 19:12 → EDIP 23:20 → 3N 06-09 07:59 → 3WST 06-09 22:23 → 4NE 06-11 15:04 → DCLOUNGE 06-18 10:41
PROVIDERS: ADMIT Internal Medicine; ATTEND Internal Medicine
PROC: 0FT44ZZ Resection of Gallbladder, Percutaneous Endoscopic Approach (ICD-10-PCS; principal; 2020-06-11 21:00)
DX: K81.0 Acute cholecystitis (principal); K85.90 Acute pancreatitis without necrosis or infection, unspecified; J15.9 Unspecified bacterial pneumonia; J96.01 Acute respiratory failure with hypoxia; N39.0 Urinary tract infection, site not specified; Z20.828 Contact with and (suspected) exposure to other viral communicable diseases; B96.20 Unspecified Escherichia coli [E. coli] as the cause of diseases classified elsewhere; D64.9 Anemia, unspecified; D75.89 Other specified diseases of blood and blood-forming organs; E66.01 Morbid (severe) obesity due to excess calories; E87.6 Hypokalemia; F10.21 Alcohol dependence, in remission; F17.210 Nicotine dependence, cigarettes, uncomplicated; F32.9 Major depressive disorder, single episode, unspecified; G47.00 Insomnia, unspecified; K70.10 Alcoholic hepatitis without ascites; K70.30 Alcoholic cirrhosis of liver without ascites; K76.0 Fatty (change of) liver, not elsewhere classified; K82.8 Other specified diseases of gallbladder; L02.224 Furuncle of groin; N83.201 Unspecified ovarian cyst, right side; E83.42 Hypomagnesemia; F41.9 Anxiety disorder, unspecified; E11.9 Type 2 diabetes mellitus without complications; Z68.35 Body mass index [BMI] 35.0-35.9, adult; Z91.018 Allergy to other foods; Z79.899 Other long term (current) drug therapy; Z79.891 Long term (current) use of opiate analgesic; Z79.01 Long term (current) use of anticoagulants
CPT/HCPCS: 36415; 84145; 96374; 96375; 99285; J3490; J7042; 71045; 74177; 74181; 76700; 76705; 78226; 80053; 81001; 82962; 83036; 83540; 83550; 83605; 83690; 83735; 83880; 84100; 84703; 85025; 85610; 85651; 85730; 86140; 86850; 86900; 87040; 87086; 88304; 93306; C1729; G0378; J0456; J0690; J0696; J1100; J1170; J1644; J1885; J2250; J2405; J2704; J2710; J3010; J3480; Q9967; A9537; J0330; J1815; J2800; J3475; J7030; J7040; J7050; J7120; Q0163; U0003

== ENCOUNTER 2020-08-18 19:56 | Inpatient (IN) | payer BC ==
[~2020-08-18] VITALS: Ht 160 cm; Wt 90.7 kg
[2020-08-18] MEDS: PANTOPRAZOLE 40 MG IV IVPush SCH (03:44)
[~2020-08-18 19:56] MED LIST changes: +HYDR2TAB29 PO
[2020-08-18] MEDS ORDERED: SODIUM CHLORIDE FLUSH 10ML SYR IVF ONE ×2 (20:30→23:30)
[2020-08-18] MEDS ORDERED: ONDANSETRON 2MG/ML, 2ML IVPush ONE ×2 (20:30→23:30)
[2020-08-18 20:53] LABS: MICROSCOPIC INDICATED
[2020-08-18 21:21] LABS: BASOPHILS % (AUTO) 0 % (0-1); EOSINOPHILS % (AUTO) 0 % (1-7); LYMPHOCYTES % (AUTO) 23 % (22-44); MEAN CORPUSCULAR HEMOGLOBIN 30.5 pg (27.0-34.8); MEAN CORPUSCULAR HGB CONC 34.2 g/dL (32.4-35.8); MONOCYTES % (AUTO) 5 % (2-9); NEUTROPHILS % (AUTO) 72 % (42-75); PLATELET COUNT 299 x10^3/uL (130-400); RED BLOOD COUNT 4.95 x10^6/uL (3.82-5.3); RED CELL DISTRIBUTION WIDTH 14.1 % (9.6-15.2)
[2020-08-18 21:23] LABS: MD NO
[2020-08-18 21:32] LABS: ALBUMIN 3.4 g/dL (3.4-5.0); ANION GAP 14 mmol/L (5-15); CALCIUM 8.2 mg/dL (8.5-10.1); CHLORIDE 104 mmol/L (98-107)
[2020-08-18 21:39] LABS: ALANINE AMINOTRANSFERASE 125 U/L (12-78); ALKALINE PHOSPHATASE 190 U/L (45-117); BILIRUBIN,TOTAL 0.6 mg/dL (0.2-1.0); CREATININE 0.81 mg/dL (0.55-1.02); TOTAL PROTEIN 7.8 g/dL (6.4-8.2)
[2020-08-18] MEDS ORDERED: SODIUM CHLORIDE 0.9% 1,000ML IVBOLUS ONE (23:30)
[2020-08-18] MEDS ORDERED: POTASSIUM CHLORIDE 20 MEQ TAB.ER.PRT PO ONE (23:30)
[2020-08-18] MEDS ORDERED: ONDANSETRON 2MG/ML, 2ML ONE (23:41)
[2020-08-18] MEDS ORDERED: MORPHINE SULFATE 4 MG/ML, 1ML ONE (23:42)
[2020-08-18] MEDS: MORPHINE SULFATE 4 MG/ML, 1ML IVPush PRN (23:45)
--- NOTE | 2020-08-18 23:50 | NUR ---
ASSUMED CARE OF PATIENT. PATIENT SEEN BY DR MORGAN. PT REPORTS BILATERAL LOWER ABD PAIN. VS STABLE. PAYMENT REP ON. SINUS TACH NOTED. BOYFRIEND AT BEDSIDE. PT REPORTS SHE DRINKS EVERYDAY. PT IS TREMULOUS. PT REPORTS SHE DRANK LESS TODAY BECAUSE SHE WAS VOMITING. CALL LIGHT IN PLACE. WILL CONTINUE TO MONITOR.
[2020-08-18] MEDS ORDERED: LORazepam 2 MG/ML, 1ML ONE (23:53)
[2020-08-19] MEDS ORDERED: PROMETHAZINE 25 MG/ML, 1ML IM ONE
[2020-08-19] MEDS ORDERED: LORazepam 2 MG/ML, 1ML IVPush ONE
[2020-08-19] MEDS ORDERED: MAGNESIUM SULFATE 1 GM, THIAMINE 100 MG, FOLIC ACID 1 MG, MVI ADULT 10 ML in SODIUM CHL... IV ONE
[2020-08-19] MEDS ORDERED: PROMETHAZINE 25 MG/ML, 1ML ONE (00:05)
[2020-08-19] MEDS ORDERED: NEOSPORIN OINT. PKT 1 PACKET ONE (00:20)
[2020-08-19] MEDS ORDERED: CEFTRIAXONE PMX 1GM/50ML 50 ML IV ONE (00:30)
[2020-08-19] MEDS ORDERED: CEFTRIAXONE PMX 1GM/50ML 50 ML ONE (00:36)
[2020-08-19] MEDS ORDERED: LORazepam 2 MG/ML, 1ML ONE ×5 (00:36→13:38)
[2020-08-19] MEDS: LORazepam 2 MG/ML, 1ML IVPush PRN ×4 (00:40→13:46)
--- NOTE | 2020-08-19 00:41 | NUR ---
US IN ROOM. VS STABLE. NO BLOOD CULTURES PER DR MORGAN
--- NOTE | 2020-08-19 01:07 | NUR ---
PT SEEN BY DR WILKINSON. VS STDSABLE. NO ACUTE DISTRESS NOTED. CALL LIGHT IN PLACE. WILL CONTINUE TO MONITOR
[2020-08-19] MEDS ORDERED: POTASSIUM CHLORIDE 20 MEQ TAB.ER.PRT ONE (01:20)
[2020-08-19] MEDS ORDERED: MORPHINE SULFATE 4 MG/ML, 1ML ONE (01:28)
[2020-08-19] MEDS: MORPHINE SULFATE 4 MG/ML, 1ML IVPush PRN (01:32)
--- NOTE | 2020-08-19 01:35 | NUR ---
PT REPORTS 10/[address] MORGAN, OKAYED TO GIVE 4 MG OF MORPHINE. VS STABLE. CAR SHAKEOUT OPERATOR ON. SINUS TACH NOTED. CALL LIGHT IN PLACE. WILL CONTINUE TO MONITOR.
[2020-08-19] MEDS ORDERED: HEPARIN 5,000 UNITS/ML, 1ML ONE ×2 (01:53→14:52)
[2020-08-19] MEDS: HEPARIN 5,000 UNITS/ML, 1ML SQ SCH ×3 (01:58→17:26)
--- NOTE | 2020-08-19 01:59 | NUR ---
REPORT FROM ANTOINE VALDERRAMA
[2020-08-19] MEDS ORDERED: POLYETHYLENE GLYCOL 17 GM PACKET PO PRN (02:00)
[2020-08-19] MEDS ORDERED: GLUCAGON 1 MG IM PRN (02:00)
[2020-08-19] MEDS ORDERED: LORazepam 2 MG/ML, 1ML IV PRN ×3 (02:00)
[2020-08-19] MEDS ORDERED: DEXTROSE 4 GM TAB.CHEW PO PRN (02:00)
[2020-08-19] MEDS ORDERED: DEXTROSE 50%, 50ML SYRINGE IVPush PRN (02:00)
[2020-08-19] MEDS ORDERED: DOCUSATE 100 MG CAPSULE PO PRN (02:00)
[2020-08-19] MEDS ORDERED: morphine SULFATE 10 MG/ML, 1ML IVPush PRN (02:00)
[2020-08-19] MEDS ORDERED: hydrALAzine 20 MG/ML, 1ML IVPush PRN (02:00)
[2020-08-19] MEDS ORDERED: BISACODYL 10 MG SUPP PR PRN (02:00)
[2020-08-19] MEDS: SODIUM CHLORIDE 0.9% 1,000 ML IV SCH ×3 (02:00→18:00)
[2020-08-19] MEDS ORDERED: PROMETHAZINE 25 MG/ML, 1ML IM PRN (02:00)
[2020-08-19] MEDS ORDERED: LORazepam 1MG TABLET PO PRN ×2 (02:00)
[2020-08-19] MEDS ORDERED: POTASSIUM CHLORIDE 40 MEQ in SODIUM CHLORIDE 0.9% 500 ML IV ONE (02:00)
[2020-08-19] MEDS ORDERED: MAGNESIUM SULFATE PMX 2GM/50ML 50 ML IV ONE ×2 (02:00→09:00)
--- NOTE | 2020-08-19 02:00 | NUR ---
PT REPORTS 8/10 EPIGASTRIC PAIN. VS STABLE. NO ACUTE DISTRESS NOTED. CALL LIGHT IN PLACE. REPORT GIVEN TO ANTOINE AHMADI
--- NOTE | 2020-08-19 02:04 | NUR ---
REPORT FROM ANTOINE CAMPA
--- NOTE | 2020-08-19 03:09 | NUR ---
REPORT TO ANTOINE TOBAR
[2020-08-19] MEDS: LORazepam 2 MG/ML, 1ML IV PRN ×4 (03:20→17:26)
--- NOTE | 2020-08-19 03:21 | NUR ---
REPORT FROM GALDINO ASSUMED CARE OF PT AT THIS TIME MEDICATED PER PT REQUEST
[2020-08-19] MEDS ORDERED: PANTOPRAZOLE 40 MG IV ONE ×2 (03:38→14:52)
[2020-08-19] MEDS ORDERED: MAGNESIUM SULFATE PMX 2GM/50ML 50 ML ONE ×2 (03:39→17:20)
--- NOTE | 2020-08-19 04:06 | NUR ---
PLACED PT ON HOSPITAL BED PT IN NAD AT THIS TIME DAVID
--- NOTE | 2020-08-19 05:25 | NUR ---
medicated for etoh withdrawls per pt request ciwa 22 at this time
[2020-08-19 05:35] LABS: BASOPHILS % (AUTO) 0 % (0-1); EOSINOPHILS % (AUTO) 0 % (1-7); LYMPHOCYTES % (AUTO) 21 % (22-44); MEAN CORPUSCULAR HGB CONC 33.8 g/dL (32.4-35.8); MONOCYTES % (AUTO) 7 % (2-9); NEUTROPHILS % (AUTO) 72 % (42-75); PLATELET COUNT 220 x10^3/uL (130-400); RED BLOOD COUNT 4.33 x10^6/uL (3.82-5.3); RED CELL DISTRIBUTION WIDTH 13.9 % (9.6-15.2)
[2020-08-19 05:37] LABS: MD NO
[2020-08-19 05:45] LABS: ANION GAP 10 mmol/L (5-15); CALCIUM 7.7 mg/dL (8.5-10.1); CHLORIDE 107 mmol/L (98-107)
[2020-08-19 05:54] LABS: ALANINE AMINOTRANSFERASE 100 U/L (12-78); ALKALINE PHOSPHATASE 149 U/L (45-117); BILIRUBIN,TOTAL 0.9 mg/dL (0.2-1.0); CHOL/HDL RATIO 15.6; CHOLESTEROL, TOTAL 218 mg/dL (140-239); CREATININE 0.76 mg/dL (0.55-1.02); HDL CHOL % 6 % (28-40); HDL CHOLESTEROL (DIRECT) 14 mg/dL (40-60); TOTAL PROTEIN 6.5 g/dL (6.4-8.2); TRIGLYCERIDES 523 mg/dL (50-200)
--- NOTE | 2020-08-19 05:58 | NUR ---
REPORT RECIEVED FROM ANTOINE NICHOLS
[2020-08-19] MEDS ORDERED: OXYcodone IR 5MG TABLET ONE ×3 (06:31→14:56)
[2020-08-19] MEDS: OXYcodone IR 5MG TABLET PO PRN ×4 (06:33→22:20)
--- NOTE | 2020-08-19 06:35 | NUR ---
PT RESTING IN BED COMFORTABLY, PROVIDED PAIN MEDS AND ICE CHIPS, OK PER MD ORDER. NO OTHER NEEDS AT THIS TIME. WILL CONTINUE TO MONITOR
--- NOTE | 2020-08-19 06:54 | NUR ---
REPORT GIVEN TO ANTOINE MULLER.
--- NOTE | 2020-08-19 06:59 | NUR ---
REPORT FROM SHIRIN, PATIENT IN BED RAILS UP.
--- NOTE | 2020-08-19 07:22 | NUR ---
PATIENT SLEEPING QUIETLY.
[2020-08-19] MEDS ORDERED: PANTOPRAZOLE 40 MG IV IVPush SCH (07:30)
--- NOTE | 2020-08-19 07:44 | NUR ---
HELPED PATIENT TO BATHROOM, WALKS GREAT.
--- NOTE | 2020-08-19 08:24 | NUR ---
PATIENT NOW RESTING QUIETLY.
--- NOTE | 2020-08-19 08:57 | NUR ---
SWABBED FOR RAPID C19
[2020-08-19] MEDS: SODIUM CHLORIDE FLUSH 10ML SYR IVF SCH ×2 (09:00→22:19)
--- NOTE | 2020-08-19 09:49 | NUR ---
PATIENT RESTING QUIETLY
[2020-08-19 11:54] LABS: INTERNATIONAL NORMALIZED RATIO 1.15 (0.93-1.1); PROTHROMBIN TIME 12.3 Seconds (9.6-11.5)
--- NOTE | 2020-08-19 12:11 | NUR ---
PATIENT REPORTING PAIN 6 OF 10 RIGHT SIDE BELLY. GAVE PRN PAIN MEDICATIONS
[2020-08-19 12:15] LABS: FREE T4 (FREE THYROXINE) 0.91 ng/dL (0.76-1.46)
--- NOTE | 2020-08-19 13:16 | NUR ---
PATIENT RESTING QUIETLY
--- NOTE | 2020-08-19 13:44 | NUR ---
HELPED PATIENT GET UP TO BATHROOM. SHE IS TREMULOUS, RETURNING PAIN, AND ANXIOUS. MEDICATED PER FERWA
[2020-08-19] MEDS: PANTOPRAZOLE 40 MG IV IVPush SCH ×2 (14:57→22:20)
--- NOTE | 2020-08-19 14:59 | NUR ---
REQUESTED FOLIC ACID, B1 AND MULTIVITE FROM PHARMACY, THEN PATIENT GOT A ROOM, WILL LET RN KNOW. REPORT CALLED
--- NOTE | 2020-08-19 15:09 | NUR ---
CALLED SECOND TIME FOR REPORT, RN BUSY IN ROOM
[2020-08-19] MEDS: FOLIC ACID 1 MG TABLET PO SCH (15:10)
[2020-08-19] MEDS: THIAMINE 100MG TABLET PO SCH (15:10)
[2020-08-19] MEDS: MULTIVITAMIN 1 TABLET PO SCH (15:10)
[2020-08-19 16:32] VITALS: BP 130/89
[2020-08-19] MEDS: ONDANSETRON 2MG/ML, 2ML IVPush PRN (17:25)
[2020-08-19 18:09] VITALS: BP 130/89
[2020-08-19 18:41] VITALS: BP 123/84
[2020-08-19] MEDS: ATORVASTATIN 40 MG TABLET PO SCH (22:20)
[2020-08-20 01:10] VITALS: BP 122/84
[2020-08-20] MEDS: LORazepam 1MG TABLET PO PRN ×4 (01:59→23:03)
[2020-08-20] MEDS: HEPARIN 5,000 UNITS/ML, 1ML SQ SCH ×3 (02:01→18:13)
[2020-08-20] MEDS: SODIUM CHLORIDE 0.9% 1,000 ML IV SCH (04:29)
[2020-08-20] MEDS: OXYcodone IR 5MG TABLET PO PRN ×4 (04:30→18:12)
[2020-08-20 06:15] LABS: BASOPHILS % (AUTO) 1 % (0-1); EOSINOPHILS % (AUTO) 3 % (1-7); LYMPHOCYTES % (AUTO) 39 % (22-44); MEAN CORPUSCULAR HEMOGLOBIN 30.4 pg (27.0-34.8); MEAN CORPUSCULAR HGB CONC 33.5 g/dL (32.4-35.8); MEAN PLATELET VOLUME 7.4 fL (7.4-10.4); MONOCYTES % (AUTO) 7 % (2-9); NEUTROPHILS % (AUTO) 51 % (42-75); PLATELET COUNT 166 x10^3/uL (130-400); RED BLOOD COUNT 3.96 x10^6/uL (3.82-5.3); RED CELL DISTRIBUTION WIDTH 14.3 % (9.6-15.2)
[2020-08-20 06:17] LABS: MD NO
[2020-08-20 06:20] LABS: CHLORIDE 104 mmol/L (98-107)
[2020-08-20 06:53] LABS: ALANINE AMINOTRANSFERASE 76 U/L (12-78); ALBUMIN 2.7 g/dL (3.4-5.0); ALKALINE PHOSPHATASE 135 U/L (45-117); ANION GAP 10 mmol/L (5-15); BILIRUBIN,TOTAL 1.8 mg/dL (0.2-1.0); CALCIUM 7.4 mg/dL (8.5-10.1); CREATININE 0.47 mg/dL (0.55-1.02)
[2020-08-20 07:38] VITALS: BP 114/80
[2020-08-20] MEDS: SODIUM CHLORIDE FLUSH 10ML SYR IVF SCH ×2 (08:11→20:52)
[2020-08-20] MEDS: PANTOPRAZOLE 40 MG IV IVPush SCH (08:11)
[2020-08-20] MEDS: THIAMINE 100MG TABLET PO SCH (08:12)
[2020-08-20] MEDS: MULTIVITAMIN 1 TABLET PO SCH (08:12)
[2020-08-20] MEDS: FOLIC ACID 1 MG TABLET PO SCH (08:12)
[2020-08-20] MEDS ORDERED: POTASSIUM CHLORIDE 20 MEQ TAB.ER.PRT PO ONE (08:30)
[2020-08-20] MEDS: ONDANSETRON ODT 4 MG PO PRN (11:28)
[2020-08-20 13:10] VITALS: BP 125/85
[2020-08-20] MEDS: ONDANSETRON 2MG/ML, 2ML IVPush PRN (18:13)
[2020-08-20] MEDS: PANTOPRAZOLE 40MG TABLET PO SCH (18:14)
[2020-08-20] MEDS: ATORVASTATIN 40 MG TABLET PO SCH (20:53)
[2020-08-20 20:58] VITALS: BP 120/83
[2020-08-21 00:08] VITALS: BP 134/83
[2020-08-21] MEDS: OXYcodone IR 5MG TABLET PO PRN ×5 (00:11→21:16)
[2020-08-21] MEDS: HEPARIN 5,000 UNITS/ML, 1ML SQ SCH ×3 (02:00→17:06)
[2020-08-21] MEDS: LORazepam 2 MG/ML, 1ML IV PRN (02:00)
[2020-08-21 05:53] LABS: BASOPHILS % (AUTO) 1 % (0-1); EOSINOPHILS % (AUTO) 5 % (1-7); LYMPHOCYTES % (AUTO) 28 % (22-44); MEAN CORPUSCULAR HEMOGLOBIN 30.2 pg (27.0-34.8); MEAN CORPUSCULAR HGB CONC 33.5 g/dL (32.4-35.8); MEAN PLATELET VOLUME 7.5 fL (7.4-10.4); MONOCYTES % (AUTO) 6 % (2-9); NEUTROPHILS % (AUTO) 61 % (42-75); PLATELET COUNT 175 x10^3/uL (130-400); RED BLOOD COUNT 4.07 x10^6/uL (3.82-5.3); RED CELL DISTRIBUTION WIDTH 14.3 % (9.6-15.2)
[2020-08-21] MEDS: PANTOPRAZOLE 40MG TABLET PO SCH ×2 (05:58→17:05)
[2020-08-21 06:02] LABS: MD NO
[2020-08-21 06:10] LABS: ANION GAP 9 mmol/L (5-15); CALCIUM 8.4 mg/dL (8.5-10.1); CHLORIDE 104 mmol/L (98-107)
[2020-08-21 06:13] LABS: ALANINE AMINOTRANSFERASE 75 U/L (12-78); ALKALINE PHOSPHATASE 154 U/L (45-117); BILIRUBIN,TOTAL 1.8 mg/dL (0.2-1.0); CREATININE 0.54 mg/dL (0.55-1.02); TOTAL PROTEIN 6.6 g/dL (6.4-8.2)
[2020-08-21 07:15] VITALS: BP 126/84
[2020-08-21] MEDS: ONDANSETRON ODT 4 MG PO PRN (11:43)
[2020-08-21] MEDS: LORazepam 1MG TABLET PO PRN ×4 (11:43→23:15)
[2020-08-21] MEDS: MULTIVITAMIN 1 TABLET PO SCH (11:45)
[2020-08-21] MEDS: THIAMINE 100MG TABLET PO SCH (11:45)
[2020-08-21] MEDS: SODIUM CHLORIDE FLUSH 10ML SYR IVF SCH ×2 (11:45→21:05)
[2020-08-21] MEDS: FOLIC ACID 1 MG TABLET PO SCH (11:45)
[2020-08-21 12:45] VITALS: BP 124/82
[2020-08-21 19:40] VITALS: BP 102/70
[2020-08-21] MEDS: ATORVASTATIN 40 MG TABLET PO SCH (21:05)
[2020-08-22 01:30] VITALS: BP 117/81
[2020-08-22] MEDS: LORazepam 1MG TABLET PO PRN (01:37)
[2020-08-22] MEDS: HEPARIN 5,000 UNITS/ML, 1ML SQ SCH ×3 (01:37→17:09)
[2020-08-22] MEDS: OXYcodone IR 5MG TABLET PO PRN ×4 (01:38→17:08)
[2020-08-22] MEDS: LORazepam 0.5MG TABLET PO PRN ×4 (05:31→20:03)
[2020-08-22] MEDS: PANTOPRAZOLE 40MG TABLET PO SCH ×2 (06:10→17:09)
[2020-08-22 06:15] LABS: BASOPHILS % (AUTO) 1 % (0-1); EOSINOPHILS % (AUTO) 4 % (1-7); LYMPHOCYTES % (AUTO) 24 % (22-44); MEAN CORPUSCULAR HEMOGLOBIN 30.7 pg (27.0-34.8); MEAN CORPUSCULAR HGB CONC 33.9 g/dL (32.4-35.8); MEAN PLATELET VOLUME 7.6 fL (7.4-10.4); MONOCYTES % (AUTO) 8 % (2-9); NEUTROPHILS % (AUTO) 64 % (42-75); PLATELET COUNT 188 x10^3/uL (130-400); RED BLOOD COUNT 4.16 x10^6/uL (3.82-5.3); RED CELL DISTRIBUTION WIDTH 14.3 % (9.6-15.2)
[2020-08-22 06:17] LABS: MD NO
[2020-08-22 06:29] LABS: CHLORIDE 102 mmol/L (98-107)
[2020-08-22 06:31] VITALS: BP 112/82
[2020-08-22 06:33] LABS: ALANINE AMINOTRANSFERASE 72 U/L (12-78); ALBUMIN 3.1 g/dL (3.4-5.0); ALKALINE PHOSPHATASE 155 U/L (45-117); ANION GAP 12 mmol/L (5-15); BILIRUBIN,TOTAL 1.4 mg/dL (0.2-1.0); CALCIUM 8.5 mg/dL (8.5-10.1); CREATININE 0.67 mg/dL (0.55-1.02); TOTAL PROTEIN 7.2 g/dL (6.4-8.2)
[2020-08-22] MEDS: THIAMINE 100MG TABLET PO SCH (07:58)
[2020-08-22] MEDS: FOLIC ACID 1 MG TABLET PO SCH (07:58)
[2020-08-22] MEDS: MULTIVITAMIN 1 TABLET PO SCH (07:58)
[2020-08-22] MEDS: SODIUM CHLORIDE FLUSH 10ML SYR IVF SCH ×2 (09:58→20:04)
[2020-08-22 13:18] VITALS: BP 106/71
[2020-08-22 19:50] VITALS: BP 118/83
[2020-08-22] MEDS: ATORVASTATIN 40 MG TABLET PO SCH (20:03)
[2020-08-22] MEDS ORDERED: MELATONIN 5 MG TABLET PO PRN (22:00)
[2020-08-23] MEDS: OXYcodone IR 5MG TABLET PO PRN ×2 (00:42→11:04)
[2020-08-23 01:02] VITALS: BP 114/78
[2020-08-23] MEDS: HEPARIN 5,000 UNITS/ML, 1ML SQ SCH ×3 (01:57→16:37)
[2020-08-23] MEDS: PANTOPRAZOLE 40MG TABLET PO SCH ×2 (05:21→16:37)
[2020-08-23 05:50] LABS: BASOPHILS % (AUTO) 1 % (0-1); EOSINOPHILS % (AUTO) 4 % (1-7); LYMPHOCYTES % (AUTO) 26 % (22-44); MD NO; MEAN CORPUSCULAR HEMOGLOBIN 30.5 pg (27.0-34.8); MEAN CORPUSCULAR HGB CONC 33.5 g/dL (32.4-35.8); MEAN PLATELET VOLUME 7.9 fL (7.4-10.4); MONOCYTES % (AUTO) 9 % (2-9); NEUTROPHILS % (AUTO) 61 % (42-75); PLATELET COUNT 211 x10^3/uL (130-400); RED BLOOD COUNT 4.01 x10^6/uL (3.82-5.3); RED CELL DISTRIBUTION WIDTH 14.7 % (9.6-15.2)
[2020-08-23 06:01] LABS: ANION GAP 14 mmol/L (5-15); CHLORIDE 105 mmol/L (98-107)
[2020-08-23 06:02] LABS: CREATININE 0.62 mg/dL (0.55-1.02)
[2020-08-23] MEDS: LORazepam 0.5MG TABLET PO PRN (07:58)
[2020-08-23] MEDS: THIAMINE 100MG TABLET PO SCH (07:58)
[2020-08-23] MEDS: FOLIC ACID 1 MG TABLET PO SCH (07:58)
[2020-08-23] MEDS: MULTIVITAMIN 1 TABLET PO SCH (07:58)
[2020-08-23] MEDS: SODIUM CHLORIDE FLUSH 10ML SYR IVF SCH (07:59)
[2020-08-23] MEDS ORDERED: MAGNESIUM SULFATE PMX 2GM/50ML 50 ML IV ONE (08:30)
[2020-08-23] MEDS ORDERED: Multivitamin PO (08:39)
[2020-08-23] MEDS ORDERED: POTASSIUM PHOSPHATE 44 MEQ in SODIUM CHLORIDE 0.9% 500 ML IV ONE (09:00)
[2020-08-23 09:28] VITALS: BP 108/72
[2020-08-23 14:42] VITALS: BP 106/72
== END 2020-08-23 18:21 | disposition home or self-care (01) | DRG 439 ==
LOC: ED 23:00 → EDIP 08-19 00:56 → 4WST 08-19 15:56
PROVIDERS: ADMIT Internal Medicine; ATTEND Internal Medicine
DX: K85.20 Alcohol induced acute pancreatitis without necrosis or infection (principal); F10.239 Alcohol dependence with withdrawal, unspecified; K70.10 Alcoholic hepatitis without ascites; E87.6 Hypokalemia; E83.42 Hypomagnesemia; E11.9 Type 2 diabetes mellitus without complications; Z20.822 Contact with and (suspected) exposure to COVID-19; E78.1 Pure hyperglyceridemia; E78.5 Hyperlipidemia, unspecified; E66.9 Obesity, unspecified; Y90.9 Presence of alcohol in blood, level not specified; F17.210 Nicotine dependence, cigarettes, uncomplicated; F32.9 Major depressive disorder, single episode, unspecified; F41.1 Generalized anxiety disorder; G89.29 Other chronic pain; K76.0 Fatty (change of) liver, not elsewhere classified; Z90.49 Acquired absence of other specified parts of digestive tract; Z68.35 Body mass index [BMI] 35.0-35.9, adult; Z91.018 Allergy to other foods; Z79.899 Other long term (current) drug therapy
CPT/HCPCS: 36415; 76700; 80048; 80053; 80061; 80320; 81001; 82607; 82962; 83036; 83690; 83735; 84100; 84439; 84443; 84703; 85025; 85610; 87086; 87635; 96360; 96374; 96375; 99285; G0378; J0696; J1644; J2405; J2550; J3411; J3475; J3480; Q0162; C9113; G0480; J2060; J2270; J7030; J7040

== ENCOUNTER 2020-11-22 18:36 | Emergency (ER) | payer BC ==
[~2020-11-22] VITALS: Ht 162.6 cm; Wt 81.0 kg
[~2020-11-22 18:36] MED LIST changes: +Multivitamin PO
[2020-11-22 19:19] LABS: BASOPHILS % (AUTO) 1 % (0-1); EOSINOPHILS % (AUTO) 1 % (1-7); LYMPHOCYTES % (AUTO) 23 % (22-44); MD NO; MEAN CORPUSCULAR HEMOGLOBIN 31.3 pg (27.0-34.8); MEAN CORPUSCULAR HGB CONC 34.2 g/dL (32.4-35.8); MEAN PLATELET VOLUME 6.7 fL (7.4-10.4); MONOCYTES % (AUTO) 8 % (2-9); NEUTROPHILS % (AUTO) 67 % (42-75); PLATELET COUNT 244 x10^3/uL (130-400); RED BLOOD COUNT 4.73 x10^6/uL (3.82-5.3); RED CELL DISTRIBUTION WIDTH 16.2 % (9.6-15.2)
[2020-11-22 19:26] LABS: ALANINE AMINOTRANSFERASE 276 U/L (12-78); ALBUMIN 4.5 g/dL (3.4-5.0); ANION GAP 17 mmol/L (5-15); CALCIUM 9.1 mg/dL (8.5-10.1); CHLORIDE 102 mmol/L (98-107); CREATININE 0.63 mg/dL (0.55-1.02)
[2020-11-22 19:31] LABS: ALKALINE PHOSPHATASE 109 U/L (45-117); TOTAL PROTEIN 8.5 g/dL (6.4-8.2)
[2020-11-22] MEDS ORDERED: ONDANSETRON 2MG/ML, 2ML ONE (21:44)
[2020-11-22] MEDS ORDERED: MORPHINE SULFATE 4 MG/ML, 1ML ONE (21:45)
[2020-11-22] MEDS ORDERED: LORazepam 2 MG/ML, 1ML ONE (21:46)
--- NOTE | 2020-11-22 21:57 | NUR ---
DR MORGAN AT BEDSIDE FOR EVAL
[2020-11-22] MEDS ORDERED: THIAMINE 100MG TABLET ONE (21:58)
[2020-11-22] MEDS ORDERED: ONDANSETRON 2MG/ML, 2ML IVPush ONE (22:00)
[2020-11-22] MEDS ORDERED: THIAMINE 100MG TABLET PO ONE (22:00)
[2020-11-22] MEDS ORDERED: SODIUM CHLORIDE 0.9% 1,000ML IVBOLUS ONE (22:00)
[2020-11-22] MEDS ORDERED: LORazepam 2 MG/ML, 1ML IVPush ONE (22:00)
[2020-11-22] MEDS ORDERED: MORPHINE SULFATE 4 MG/ML, 1ML IVPush ONE (22:00)
[2020-11-22] MEDS ORDERED: SODIUM CHLORIDE FLUSH 10ML SYR IVF ONE (22:00)
[2020-11-22 22:01] LABS: MICROSCOPIC AUTO
[2020-11-22 23:41] VITALS: BP 122/74
--- NOTE | 2020-11-22 23:42 | NUR ---
Patient/Caregiver given discharge instructions and they have confirmed that they understand the instructions. Patient ambulatory with steady gait.
== END 2020-11-22 23:43 | disposition home or self-care (01) ==
LOC: ED 19:06
DX: K29.20 Alcoholic gastritis without bleeding (principal); K86.0 Alcohol-induced chronic pancreatitis; F10.10 Alcohol abuse, uncomplicated; E11.9 Type 2 diabetes mellitus without complications; R10.13 Epigastric pain; F17.210 Nicotine dependence, cigarettes, uncomplicated; Z72.9 Problem related to lifestyle, unspecified; Z90.49 Acquired absence of other specified parts of digestive tract; Y90.0 Blood alcohol level of less than 20 mg/100 ml
CPT/HCPCS: 36415; 76700; 80053; 80320; 81001; 83690; 84703; 85025; 96374; 96375; 99284; 99406; J2270; J2405; J7030; G0480